=== PATIENT | female | born 1930 ===

== ENCOUNTER 2020-01-22 09:27 | Outpatient (CLI) | payer MEDICARE ==
[2020-01-22 10:31] LABS: INR 2.7 (0.87-1.13)
== END 2020-01-22 09:28 | disposition home or self-care (01) ==
LOC: LABHHL 09:27
PROVIDERS: ATTEND Family Medicine
DX: I11.0 Hypertensive heart disease with heart failure (principal); I50.9 Heart failure, unspecified; I48.91 Unspecified atrial fibrillation
CPT/HCPCS: 36415; 85610